=== PATIENT | female | born 1990 | race Two or more races ===

== ENCOUNTER 2017-03-19 16:17 | Emergency (ER) | payer MEDICAID, OTHER ==
[~2017-03-19] VITALS: Ht 162.6 cm; Wt 81.6 kg
[2017-03-19] MEDS ORDERED: NKM (17:05)
[2017-03-19] MEDS ORDERED: Norco 5mg/325mg tab ORAL ONE (17:30)
--- NOTE | 2017-03-19 17:42 | Emergency Room Report ---
History of Present Illness General Chief Complaint: Lower Extremity Injury Source: Patient Present Illness HPI 26-year-old female presents to the emergency department complaining of 7/10 in severity localized pain to the right knee on the anterior aspect x1 week. Patient states that she slipped on a wet floor while at work one week ago and has had tenderness and pain since. Patient denies instability of the knee. Patient states pain is worsened upon extension or flexion in addition to weight- bearing. Patient denies erythema, swelling, bruising, increased temperature palpation. Patient denies previous injury to the affected extremity. She denies hitting her head or loss of consciousness. Patient denies neck pain or back pain. Denies numbness tingling or loss of sensation or gross motor movements of the extremities, incontinence of bowel or bladder. Denies CP, Palpitations, LOC, AMS, dizziness, Changes in Vision, Sensation, paresthesias, or a sudden severe headache. Allergies: Coded Allergies: No Known Allergies (Unverified , 03/19/17) Patient History Past Medical History: see triage record Past Surgical History: none Pertinent Family History: none Last Menstrual Period: 02/05/17 "Irregular" Now: No Immunizations: UTD Reviewed Nursing Documentation: PMH: Agreed, PSxH: Agreed Nursing Documentation-PMH Hx Cardiac Problems: Yes Review of Systems All Other Systems: negative except mentioned in HPI Physical Exam Vital Signs Date Time Temp Pulse Resp B/P (MAP) Pulse Ox O2 Delivery O2 Flow Rate FiO2 03/19/17 17:00 98.1 78 16 132/73 100 Room Air Sp02 EP Interpretation: reviewed, normal General Appearance: no apparent distress, alert, GCS 15, non-toxic Head: normocephalic, atraumatic Eyes: bilateral eye normal inspection, bilateral eye PERRL ENT: hearing grossly normal, normal voice Neck: full range of motion Respiratory: lungs clear, normal breath sounds, speaking full sentences Cardiovascular #1: regular rate, rhythm, normal capillary refill Rectal: deferred Genitourinary: normal inspection Musculoskeletal: back normal, gait/station normal, normal range of motion, no calf tenderness, tender - TTP to the anterior right knee, negative increased laxity to the ligaments, FROM with pain, no weakness, NVI, mild swelling noted, no erythema, no increased temperature to palption , no bruises. Neurologic: alert, oriented x3, responsive, motor strength/tone normal, sensory intact, speech normal Psychiatric: judgement/insight normal, memory normal, mood/affect normal, no suicidal/homicidal ideation Reflexes: 4+ bicep (R), 4+ bicep (L), 4+ tricep (R), 4+ tricep (L), 4+ knee (R) , 4+ knee (L) Skin: normal color, no rash, warm/dry, well hydrated Lymphatic: no adenopathy Medical Decision Making PA Attestation Dr. Mcmillan is my supervising Physician whom patient management has been discussed with. Diagnostic Impression: Primary Impression: Contusion of knee, right Qualified Codes: S80.01XA - Contusion of right knee, initial encounter ER Course 26-year-old female presents to the emergency department complaining of 7/10 in severity localized pain to the right knee on the anterior aspect x1 week. Patient states that she slipped on a wet floor while at work one week ago and has had tenderness and pain since. Patient denies instability of the knee. Patient states pain is worsened upon extension or flexion in addition to weight- bearing. Patient denies erythema, swelling, bruising, increased temperature palpation. Patient denies previous injury to the affected extremity. She denies hitting her head or loss of consciousness. Patient denies neck pain or back pain. Denies numbness tingling or loss of sensation or gross motor movements of the extremities, incontinence of bowel or bladder. Denies CP, Palpitations, LOC, AMS, dizziness, Changes in Vision, Sensation, paresthesias, or a sudden severe headache. Ddx considered but are not limited to Fracture, dislocation, contusion, Sprain/ Strain/Spasm, effusion just to name a few. Vital signs: are WNL, pt. is afebrile H&PE are most consistent with musculoskeletal injury will perform imaging to r/ o fractures/dislocations. ORDERS: - X-ray Right Knee 3 views - negative for fx, Dislocation, or significant soft tissue injury, per preliminary read in ED by Dr. Mcmillan - interpretation is scribed by PA. ED INTERVENTIONS: - [place] PO -Neeraj wrap applied ro the right knee by gallery or museum technician. Pt. remains neurovascularly intact. -Pt. is provided with crutches. DISCHARGE: At this time pt. is stable for d/c to home. Will provide printed patient care instructions, and any necessary prescriptions. Care plan and follow up instructions have been discussed with the patient prior to discharge. Last Vital Signs Date Time Temp Pulse Resp B/P (MAP) Pulse Ox O2 Delivery O2 Flow Rate FiO2 03/19/17 17:00 98.1 78 16 132/73 100 Room Air Disposition: HOME, SELF-CARE Condition: Stable Scripts Ibuprofen* (MOTRIN*) 600 Mg Tablet 600 MG ORAL THREE TIMES A DAY, #30 TAB 0 Refills Prov: Kristen Adams 03/19/17 Departure Forms: Return to Work Return to Work Date: Mar 22, 2017 Work Restrictions: No Heavy Lifting, No Prolonged Standing, Desk Work Only Other Restrictions: light duty x 1 week. Return to Full Activity: Mar 29, 2017 Patient Instructions: Contusion, [id number], Knee Pain, [id number] Additional Instructions: Take medications as directed. Follow up with a Primary Care Provider in 3-5 days, even if your symptoms have resolved. MRI may be required if symptoms persist. --Please review list of primary care clinics, if you do not already have a primary care provider Return sooner to ED if new symptoms occur, or current symptoms become worse. - Please note that this Emergency Department Report was dictated using [employer] technology software, occasionally this can lead to erroneous entry secondary to interpretation by the dictation equipment. Kristen Adams Mar 19, 2017 17:42
[2017-03-19] MEDS ORDERED: IBUPROFEN600 MG ORAL (17:43)
[2017-03-19 18:24] VITALS: BP 132/73
--- NOTE | 2017-03-20 10:12 | Diagnostic Imaging Report ---
Indications: PAIN status post fall 2 weeks ago Technique: Three views of the right knee Comparison: None Findings: No acute fractures. No dislocations. Joint spaces are preserved. No radiopaque foreign body. Normal mineralization. Impression: No acute process
== END 2017-03-19 18:24 | disposition home or self-care (01) ==
LOC: EMR 16:50
DX: S80.01XA Contusion of right knee, initial encounter (principal); W01.0XXA Fall on same level from slipping, tripping and stumbling without subsequent striking against object, initial encounter; Y93.9 Activity, unspecified; Y99.0 Civilian activity done for income or pay
CPT/HCPCS: 99283

== ENCOUNTER 2020-08-28 10:10 | Emergency (ER) | payer MEDICAID, OTHER ==
[~2020-08-28] VITALS: Ht 162.6 cm; Wt 81.6 kg
[~2020-08-28 10:10] MED LIST: IBUPROFEN600 MG ORAL; NKM
[2020-08-28 10:37] VITALS: BP 124/88
[2020-08-28] MEDS ORDERED: Pantoprazole Inj IVP ONE (10:45)
[2020-08-28] MEDS ORDERED: Dicyclomine HCl 10mg/5ml oral soln ORAL ONE (10:45)
--- NOTE | 2020-08-28 10:45 | Emergency Room Report ---
History of Present Illness General Chief Complaint: Abdominal Pain Source: Patient Present Illness HPI Patient is a 29-year-old female past medical history of gastritis who presents to the ER complaining of abdominal pain for the past week. Patient complains of associated nausea and nonbloody diarrhea. She denies any fever or chills. She denies any chest pain or shortness of breath. She denies any vomiting. She denies any dysuria or hematuria. She states she has not taken any medications for this. Allergies: Coded Allergies: No Known Allergies (Unverified , 03/19/17) COVID-19 Screening Contact w/high risk pt: No Experienced COVID-19 symptoms?: No COVID-19 Testing performed RECENTERER: No Patient History Now: No Reviewed Nursing Documentation: PMH: Agreed; PSxH: Agreed Nursing Documentation-PMH Hx Cardiac Problems: No Hx Hypertension: No Hx Pacemaker: No Hx Asthma: No Hx COPD: No Hx Diabetes: No Hx Cancer: No Hx Gastrointestinal Problems: Yes Hx Dialysis: No History Of Psychiatric Problem: No Hx Neurological Problems: No Hx Cerebrovascular Accident: No Hx Seizures: No Review of Systems All Other Systems: negative except mentioned in HPI Physical Exam Vital Signs Date Time Temp Pulse Resp B/P (MAP) Pulse Ox O2 Delivery O2 Flow Rate FiO2 08/28/20 10:31 98.2 84 18 124/88 (100) 100 Room Air Sp02 EP Interpretation: reviewed, normal General Appearance: no apparent distress, alert, GCS 15, non-toxic Head: normocephalic, atraumatic Eyes: bilateral eye normal inspection, bilateral eye PERRL ENT: hearing grossly normal, normal pharynx, no angioedema, normal voice Neck: full range of motion, supple/symm/no masses Respiratory: chest non-tender, lungs clear, normal breath sounds, speaking full sentences Cardiovascular #1: regular rate, rhythm, no edema Gastrointestinal: no guarding, no rebound, other - Epigastric and periumbilical tenderness to palpation Rectal: deferred Genitourinary: no CVA tenderness Musculoskeletal: normal range of motion Neurologic: medical support specialist III-XII nml as tested, oriented x3 Psychiatric: no suicidal/homicidal ideation Skin: no rash Lymphatic: no adenopathy Medical Decision Making Diagnostic Impression: Primary Impression: Gallstones Additional Impression: Gastritis ER Course Patient is nontoxic-appearing. Vital signs are stable. Labs demonstrate no significant acute abnormalities. Pain improved after GI cocktail. CT demonstrates gallstones but no evidence for acute cholecystitis. I have given the patient a copy of her CT results and told her that she needs to follow-up as the gallstones can give her issues in the future. After discussing risks and benefits of further diagnostics, treatment plans, as well as indications for and risks of admission, the patient is agreeable to being discharged home. I have explained that their evaluation and treatment in the emergency department today is an important step towards them achieving better health but that their evaluation today is not intended to replace further evaluation and treatment by a physician in their local clinic. I have explained that while the current findings suggest no immediate life threatening emergency they will require further evaluation and treatment by a physician of their choice in their area. They understand that it will be necessary for them to review the final reports of their ED visit with their clinic physician. We have reviewed indications for return to the Emergency Department. I have explained that additional time may need to pass and/or additional testing as an outpatient may be necessary before a definitive diagnosis can be made. They tell me they are willing to follow up as instructed within the timeframe I recommend. They appear to understand what we discussed. Additionally they understand that if they are unable to be seen by an outpatient physician they are welcome, and in fact should, return to the Emergency Department for a repeat evaluation. The patient is stable at time of discharge. Laboratory Tests Test 08/28/20 11:00 White Blood Count 11.5 K/UL (4.8-10.8) H Red Blood Count 5.59 M/UL (4.20-5.40) H Hemoglobin 13.3 G/DL (12.0-16.0) Hematocrit 43.5 % (37.0-47.0) Mean Corpuscular Volume 78 FL (80-99) L Mean Corpuscular Hemoglobin 23.8 PG (27.0-31.0) L Mean Corpuscular Hemoglobin Concent 30.6 G/DL (32.0-36.0) L Red Cell Distribution Width 14.9 % (11.6-14.8) H Platelet Count 394 K/UL (150-450) Mean Platelet Volume 7.4 FL (6.5-10.1) Neutrophils (%) (Auto) 83.2 % (45.0-75.0) H Lymphocytes (%) (Auto) 10.0 % (20.0-45.0) L Monocytes (%) (Auto) 6.0 % (1.0-10.0) Eosinophils (%) (Auto) 0.2 % (0.0-3.0) Basophils (%) (Auto) 0.7 % (0.0-2.0) Urine Color Yellow Urine Appearance Slightly cloudy Urine pH 6 (4.5-8.0) Urine Specific [place] 1.025 (1.005-1.035) Urine Protein 2+ (NEGATIVE) H Urine Glucose (UA) Negative (NEGATIVE) Urine Ketones Negative (NEGATIVE) Urine Blood 3+ (NEGATIVE) H Urine Nitrite Negative (NEGATIVE) Urine Bilirubin Negative (NEGATIVE) Urine Urobilinogen Normal MG/DL (0.0-1.0) Urine Leukocyte Esterase 1+ (NEGATIVE) H Urine RBC 2-4 /HPF (0 - 2) H Urine WBC 2-4 /HPF (0 - 2) Urine Squamous Epithelial Cells Moderate /LPF (NONE/OCC) H Urine Bacteria Few /HPF (NONE) Urine Mucus Moderate /LPF (NONE/OCC) H Urine HCG, Qualitative Negative (NEGATIVE) Sodium Level 140 MMOL/L (136-145) Potassium Level 3.8 MMOL/L (3.5-5.1) Chloride Level 103 MMOL/L (98-107) Carbon Dioxide Level 27 MMOL/L (21-32) Anion Gap 10 mmol/L (5-15) Blood Urea Nitrogen 19 mg/dL (7-18) H Creatinine 0.7 MG/DL (0.55-1.30) Estimated Glomerular Filtration Rate > 60 mL/min (>60) Glucose Level 110 MG/DL (74-106) H Calcium Level 9.1 MG/DL (8.5-10.1) Magnesium Level 1.8 MG/DL (1.8-2.4) Total Bilirubin 0.4 MG/DL (0.2-1.0) Aspartate Amino Transferase (AST) 19 U/L (15-37) Alanine Aminotransferase (ALT) 34 U/L (12-78) Alkaline Phosphatase 73 U/L (46-116) Total Protein 8.2 G/DL (6.4-8.2) Albumin 3.8 G/DL (3.4-5.0) Globulin 4.4 g/dL Albumin/Globulin Ratio 0.9 (1.0-2.7) L Lipase 137 U/L (73-393) Urine Opiates Screen Negative (NEGATIVE) Urine Barbiturates Screen Negative (NEGATIVE) Phencyclidine (PCP) Screen Negative (NEGATIVE) Urine Amphetamines Screen Negative (NEGATIVE) Urine Benzodiazepines Screen Negative (NEGATIVE) Urine Cocaine Screen Negative (NEGATIVE) Urine Marijuana (THC) Screen Negative (NEGATIVE) Last Vital Signs Date Time Temp Pulse Resp B/P (MAP) Pulse Ox O2 Delivery O2 Flow Rate FiO2 08/28/20 10:31 98.2 84 18 124/88 (100) 100 Room Air Disposition: HOME, SELF-CARE Condition: Stable Scripts Ondansetron* (ZOFRAN*) 4 Mg Tablet 4 MG ORAL Q6H PRN for Nausea & Vomiting, #14 TAB Prov: Luli Norton M.D. 08/28/20 Pantoprazole* (PROTONIX*) 40 Mg Tablet.dr 40 MG ORAL DAILY, #30 TAB Prov: Luli Norton M.D. 08/28/20 Referrals: [facility]ERR[facility] (PCP) Additional Instructions: The patient was provided with discharge instructions, notified to follow-up with a primary care doctor and or specialist in the next 24-48 hours, and to return to the ED if they have worsening of their symptoms. Please note that this report is being documented using [employer] technology. This can lead to erroneous entry secondary to incorrect interpretation by the dictating instrument. Luli Norton M.D. Aug 28, 2020 10:45
[2020-08-28 11:18] LABS: APPEARANCE,URINE SLIGHTLY CLOUDY; BILIRUBIN, URINE NEGATIVE (NEGATIVE); GLUCOSE, URINE (UA) NEGATIVE (NEGATIVE); KETONES,URINE NEGATIVE (NEGATIVE); LEUKOCYTE ESTERASE ,URINE 1+ (NEGATIVE); NITRITE,URINE NEGATIVE (NEGATIVE); PH,URINE 6 (4.5-8.0); PROTEIN,URINE 2+ (NEGATIVE); UROBILINOGEN,URINE NORMAL MG/DL (0.0-1.0)
[2020-08-28 11:22] LABS: ANION GAP 10 mmol/L (5-15); BASOPHILS % (AUTO) 0.7 % (0.0-2.0); BLOOD UREA NITROGEN 19 mg/dL (7-18); CALCIUM 9.1 MG/DL (8.5-10.1); CARBON DIOXIDE 27 MMOL/L (21-32); CHLORIDE 103 MMOL/L (98-107); COLOR,URINE YELLOW; CREATININE 0.7 MG/DL (0.55-1.30); EOSINOPHILS % (AUTO) 0.2 % (0.0-3.0); HEMATOCRIT 43.5 % (37.0-47.0); HEMOGLOBIN 13.3 G/DL (12.0-16.0); MEAN CORPUSCULAR VOLUME 78 FL (80-99); NEUTROPHILS % (AUTO) 83.2 % (45.0-75.0); PLATELET COUNT 394 K/UL (150-450); POTASSIUM 3.8 MMOL/L (3.5-5.1); RED BLOOD COUNT 5.59 M/UL (4.20-5.40); RED CELL DISTRIBUTION WIDTH 14.9 % (11.6-14.8); SODIUM 140 MMOL/L (136-145); WHITE BLOOD COUNT 11.5 K/UL (4.8-10.8)
[2020-08-28 11:26] LABS: ALANINE AMINOTRANSFERASE 34 U/L (12-78); ALBUMIN 3.8 G/DL (3.4-5.0); ALBUMIN/GLOBULIN RATIO 0.9 (1.0-2.7); ALKALINE PHOSPHATASE 73 U/L (46-116); ASPARTATE AMINO TRANSFERASE 19 U/L (15-37); BILIRUBIN,TOTAL 0.4 MG/DL (0.2-1.0)
--- NOTE | 2020-08-28 11:58 | Diagnostic Imaging Report ---
EXAM: CT Abdomen and Pelvis Without Intravenous Contrast CLINICAL HISTORY: ABD PAIN TECHNIQUE: Axial computed tomography images of the abdomen and pelvis without intravenous contrast. CTDI is 12.5 mGy and DLP is 695.2 mGy-cm. One or more of the following dose reduction techniques were used: automated exposure control, adjustment of the mA and/or kV according to patient size, use of iterative reconstruction technique. COMPARISON: No relevant prior studies available. FINDINGS: Lung bases: Unremarkable. ABDOMEN: Liver: Heterogeneous and fatty liver. Gallbladder and bile ducts: Cholelithiasis. Pancreas: Unremarkable. Spleen: Unremarkable. Adrenals: Unremarkable. Kidneys and ureters: No renal calculi or obstructive changes. Stomach and bowel: No scotty mural thickening. Nonobstructive bowel gas pattern. PELVIS: Appendix: Unremarkable appendix. Bladder: Unremarkable. Reproductive: Unremarkable. ABDOMEN and PELVIS: Intraperitoneal space: Unremarkable. Bones/joints: No acute fracture. Soft tissues: Unremarkable. Vasculature: Unremarkable. No abdominal aortic aneurysm. Lymph nodes: No enlarged lymph nodes. IMPRESSION: 1. Cholelithiasis. 2. Unremarkable appendix.
[2020-08-28] MEDS ORDERED: ZOFRAN4 M3 ORAL (12:03)
[2020-08-28] MEDS ORDERED: PROTONIX40 MG ORAL (12:03)
== END 2020-08-28 12:23 | disposition home or self-care (01) ==
LOC: EMR 10:23
DX: K80.80 Other cholelithiasis without obstruction (principal); K29.70 Gastritis, unspecified, without bleeding
CPT/HCPCS: 36415; 74176; 80053; 80307; 81003; 81025; 83690; 83735; 85025; 96361; 96374; 99284; J7030